=== PATIENT | female | born 1965 | race Caucasian/White ===

== ENCOUNTER 2020-08-05 11:40 | Outpatient (REF) | payer OTHER, SELFPAY | END 2020-08-05 11:41 | disposition home or self-care (01) | LOC: HO.LAB 11:40 | PROVIDERS: PCP Internal Medicine; Visit Provider Internal Medicine | DX: Z20.828 Contact with and (suspected) exposure to other viral communicable diseases (principal) | CPT/HCPCS: C9803; U0003 ==

== ENCOUNTER 2021-03-10 08:02 | Outpatient (REF) | payer OTHER, SELFPAY ==
--- NOTE | ~2021-03-10 | MM_ITS ---
EXAMINATION: MM SCREENING DIGITAL BREAST TOMOSYNTHESIS, BILATERAL CLINICAL INFORMATION: Screening. Asymptomatic. The lifetime risk of breast cancer based on the Tyrer-Cuzick Model is 10%. COMPARISON: Mammography: March 04, 2020 and studies dating back to October 18, 2014 TECHNIQUE: Digital breast tomosynthesis is performed in both the craniocaudal and mediolateral oblique views along with computer-aided detection (CAD). Synthesized 2D images are generated from the tomosynthesis. FINDINGS: The breasts are heterogeneously dense, which may obscure small masses (ACR BI-RADS breast composition Category c). There are no significant masses, abnormal calcifications, or other abnormalities. MM/MM tomosynthesis screening BI IMPRESSION: There are no significant changes from prior study. ASSESSMENT: BI-RADS 1: Negative RECOMMENDATION: Routine annual mammography screening. This patient's information was entered into a reminder system with a target due date for their next mammogram.
== END 2021-03-10 08:03 | disposition home or self-care (01) ==
LOC: HO.MAMMO 08:02
PROVIDERS: Visit Provider Obstetrics & Gynecology
DX: Z12.31 Encounter for screening mammogram for malignant neoplasm of breast (principal)
CPT/HCPCS: 77063; 77067

== ENCOUNTER 2021-05-08 11:29 | Outpatient (REF) | payer OTHER, SELFPAY ==
--- NOTE | ~2021-05-08 | XR_ITS ---
EXAMINATION: XR SHOULDER, RIGHT CLINICAL INFORMATION: Right shoulder pain COMPARISON: None TECHNIQUE: Three views of the right shoulder. FINDINGS: The bones and soft tissues are normal. No fracture. Glenohumeral and acromioclavicular alignment is anatomic with normal joint space. No abnormal soft tissue calcifications. XR/XR shoulder RT min 2V IMPRESSION: No bony abnormality of the right shoulder.
== END 2021-05-08 11:30 | disposition home or self-care (01) ==
LOC: HO.HMGCX 11:29
PROVIDERS: PCP Internal Medicine; Visit Provider Hospitalist
DX: M25.511 Pain in right shoulder (principal); Z20.822 Contact with and (suspected) exposure to COVID-19
CPT/HCPCS: 73030; U0003; U0005

== ENCOUNTER 2021-05-25 15:34 | Outpatient (REF) | payer OTHER, SELFPAY ==
[2021-05-25 16:05] LABS: COVID-19 Test Negative (Negative); IDNOW Serial# 9DD0AD1C
== END 2021-05-25 15:35 | disposition home or self-care (01) ==
LOC: HO.LAB 15:34
PROVIDERS: PCP Internal Medicine; Visit Provider Internal Medicine
DX: Z20.822 Contact with and (suspected) exposure to COVID-19 (principal)
CPT/HCPCS: 36415; 87635; C9803

== ENCOUNTER 2022-03-31 13:54 | Outpatient (REF) | payer OTHER, SELFPAY ==
--- NOTE | ~2022-03-31 | MM_ITS ---
EXAMINATION: MM SCREENING DIGITAL BREAST TOMOSYNTHESIS, BILATERAL CLINICAL INFORMATION: Screening. Asymptomatic. The lifetime risk of breast cancer based on the Tyrer-Cuzick Model is 7.5%. COMPARISON: Mammography: March 10, 2021 and studies dating back to August 10, 2012 TECHNIQUE: Digital breast tomosynthesis is performed in both the craniocaudal and mediolateral oblique views along with computer-aided detection (CAD). Synthesized 2D images are generated from the tomosynthesis. FINDINGS: The breasts are heterogeneously dense, which may obscure small masses (ACR BI-RADS breast composition Category c). There are no significant masses, abnormal calcifications, or other abnormalities. MM/MM tomosynthesis screening BI IMPRESSION: There are no significant changes from prior study. ASSESSMENT: BI-RADS 1: Negative RECOMMENDATION: Routine annual mammography screening. This patient's information was entered into a reminder system with a target due date for their next mammogram.
== END 2022-03-31 13:55 | disposition home or self-care (01) ==
LOC: HO.MAMMO 13:54
PROVIDERS: Visit Provider Internal Medicine
DX: Z12.31 Encounter for screening mammogram for malignant neoplasm of breast (principal)
CPT/HCPCS: 77063; 77067

== ENCOUNTER 2023-06-13 09:10 | Outpatient (REF) | payer OTHER, SELFPAY | END 2023-06-13 09:11 | disposition home or self-care (01) | LOC: HO.MAMMO 09:10 | PROVIDERS: PCP Internal Medicine; Visit Provider Internal Medicine | DX: Z12.31 Encounter for screening mammogram for malignant neoplasm of breast (principal) | CPT/HCPCS: 77063; 77067 ==

== ENCOUNTER → 2023-06-13 09:15 | Outpatient (BNV) | payer OTHER, SELFPAY | PROVIDERS: PCP Internal Medicine; Visit Provider Radiology Diagnostic Radiology | DX: Z12.31 Encounter for screening mammogram for malignant neoplasm of breast (principal) | CPT/HCPCS: 77063; 77067 ==

== ENCOUNTER 2024-06-19 08:25 | Outpatient (REF) | payer OTHER, SELFPAY ==
--- NOTE | ~2024-06-19 | MM_ITS ---
EXAMINATION: MM SCREENING DIGITAL BREAST TOMOSYNTHESIS, BILATERAL CLINICAL INFORMATION: Screening. Asymptomatic. COMPARISON: Mammography: Comparison is made with available priors TECHNIQUE: Digital breast mammography with tomosynthesis is performed in both the craniocaudal and mediolateral oblique views along with computer-aided detection (CAD). FINDINGS: There are scattered areas of fibroglandular density (ACR BI-RADS breast composition Category b). There are no significant masses, abnormal calcifications, or other abnormalities. MM/MM tomosynthesis screening BI IMPRESSION: No mammographic evidence of malignancy. ASSESSMENT: BI-RADS BI-RADS 1 - Negative RECOMMENDATION: Routine annual mammography screening. 1 year F/U This examination should not preclude the clinical evaluation of a suspicious palpable abnormality. This patient's information was entered into a reminder system with a target due date for their next mammogram. Electronically signed by: Altagracia Felton DO 06/29/2024 04:45 PM EDT
== END 2024-06-19 08:26 | disposition home or self-care (01) ==
LOC: HO.MAMMO 08:25
PROVIDERS: PCP Internal Medicine; Visit Provider Internal Medicine
DX: Z12.31 Encounter for screening mammogram for malignant neoplasm of breast (principal)
CPT/HCPCS: 77063; 77067

== ENCOUNTER → 2024-06-19 08:30 | Outpatient (BNV) | payer OTHER, SELFPAY | PROVIDERS: PCP Internal Medicine; Visit Provider Internal Medicine | DX: Z12.31 Encounter for screening mammogram for malignant neoplasm of breast (principal) | CPT/HCPCS: 77063; 77067 ==

== ENCOUNTER 2024-07-16 09:47 | Outpatient (AMB) | payer OTHER, SELFPAY ==
--- NOTE | 2024-07-16 10:19 | MHC.PC.OV ---
Vital Signs 07/16/24 10:31 Height 5 ft 5 in Weight 145 lb 6 oz BMI 24.2 BP 140/100 H Blood Pressure Location Lt brachial Position Sitting Pulse 98 Pulse Source Pulse Oximeter Pulse Oximetry (%) 100 Oxygen Delivery Method Room Air Intake Visit Reasons: Pre-Op- Oral Surgery Intake Note: Patient is here for a Pre-op for Oral Surgery (Tooth Extraction) scheduled with Denny Gyu (F:[phone]) on 07/27/24. Floral Arranger Required: No Ammunition Assembly I Laborer: Not Required per policy Accompanied by: Self / Same As Patient Allergies cephalexin [Cephalexin] Allergy (Unknown, Verified 07/16/24 13:08) HIVES ciprofloxacin [From Cipro] Allergy (Unknown, Verified 07/16/24 13:08) HIVES nitrofurantoin [Macrodantin] Allergy (Unknown, Verified 07/16/24 13:08) Hives penicillin V Allergy (Unknown, Verified 07/16/24 13:08) Hives Penicillins Allergy (Unknown, Verified 07/16/24 13:08) HIVES Sulfa (Sulfonamide Antibiotics) Allergy (Unknown, Verified 07/16/24 13:08) hives sulfamethoxazole [From Bactrim] Allergy (Unknown, Verified 07/16/24 13:08) HIVES trimethoprim [From Bactrim] Allergy (Unknown, Verified 07/16/24 13:08) HIVES Erythromycin Allergy (Unknown, Uncoded 07/16/24 13:08) Hives From MACRODANTIN Allergy (Unknown, Uncoded 07/16/24 13:08) HIVES/BLISTERS keflex Allergy (Unknown, Uncoded 07/16/24 13:08) blisters/rash macrodantin Allergy (Unknown, Uncoded 07/16/24 13:08) blisters/rash penicillin Allergy (Unknown, Uncoded 07/16/24 13:08) blisters/rash sulfa Allergy (Unknown, Uncoded 07/16/24 13:08) blisters/rash Medication List - Last Reconciled 07/16/24 by Shine Robles MD lisinopril 10 mg PO DAILY lorazepam 0.5 mg PO BEDTIME PRN Tobacco use date assessed: 07/16/24 Dental Screening Dental Screen Date: 07/16/24 Did you have a dental visit in the last 12 months?: Yes Did you have a dental problem in the last 6 months where you did not have access to dental care?: No Was dental information given to patient?: Patient has dentist HPI Pre-Op- Oral Surgery HPI Details Patient was last seen for primary care in 03/01/2021. She returns for a preop clearance. 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 She received a prolonged duration of antibiotics which was discontinued 6 months ago. Subsequently she was on an antibiotic for a skin condition which was discontinued 2-1/2 months ago. Patient currently he is on no medications. She needs extraction of her teeth to be done under deep IV sedation. At the dentist, her blood pressure was found to be elevated requesting this preop clearance. Patient is currently on no antihypertensives. 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 She also has had bunion resection surgery. These procedures were done under general anesthesia and patient recovered uneventfully. Does not smoke and is a social drinker. COUNT INCLUDES [facility] Medical History Essential hypertension Surgical History History of ankle surgery H/O splenectomy Family History Mother No problems noted. Father No problems noted. Social History Housing: House Alcohol intake: current Alcohol intake frequency: holidays/special occasions only Patient Tobacco Use Status: Former Tobacco user e-Cigarette/Vaping Use: Never Used Second Hand Smoke Exposure: Yes service: No Current occupational status: employed Cognitive needs: No Hearing needs: No Vision needs: Yes (Glasses) Questionnaire PHQ-9 Over the last 2 weeks, how often have you been bothered by any of the following problems? 1. Little interest or pleasure in doing things: not at all 2. Feeling down, depressed, or hopeless: not at all 3. Trouble falling or staying asleep, or sleeping too much: not at all 4. Feeling tired or having little energy: not at all 5. Poor appetite or overeating: not at all 6. Feeling bad about yourself - or that you are a failure or have let yourself or your family down: not at all 7. Trouble concentrating on things, such as reading the newspaper or watching television: not at all 8. Moving or speaking so slowly that other people could have noticed. Or the opposite - being so fidgety or restless that you have been moving around a lot more than usual: not at all 9. Thoughts that you would be better off or of hurting yourself in some way: not at all Total score: 0 Depression Screening Interpretation: Negative Depression Screening Done: Yes Source: Developed by Drs. Jose Pedersen, Jeanette Farmer, Chuck Adams and colleagues, with an educational emery from [employer]. Thrive Questionnaire Date Thrive assessed: 07/16/24 I am a: Patient What is your living situation today?: I have a steady place to live Within the past 12 months, did the food you bought not last and you didn't have the money to get more?: Never true Within the past 12 months, did you worry whether your food would run out before you got money to buy more?: Never true Do you have trouble paying for medicines?: No Do you have trouble getting transportation to medical appointments?: No Do you have trouble paying your heating and electricity bill?: No Do you have trouble taking care of your child, family member or friend?: No Do you have trouble with day-to-day activities such as bathing, preparing meals, shopping, managing finances, etc.?: No Are you currently unemployed and looking for a job?: No Are you interested in more education?: No Currently or been in a relationship where the following occur: No concerns reported THRIVE Score: 0 AUDIT C Alcohol Use Questionnaire (AUDIT-C) 2. How many drinks containing alcohol do you have on a typical day when you are drinking?: 1 or 2 3. How often do you have six or more drinks on one occasion?: Never Total Score: 0 SARAHY-7 AMB Questionnaire SARAHY-7 Date SARAHY - 7 assessed: 07/16/24 Feeling nervous, anxious, or on edge: 1 = Several days Not being able to stop or control worryin = Several days Worrying too much about different things: 1 = Several days Trouble relaxin = Several days Being so restless that it is hard to sit still: 3 = Nearly every day Becoming easily annoyed or irritable: 0 = Not at all Feeling afraid as if something awful might happen: 0 = Not at all Total SARAHY-7 score (0-4 normal; 5-9 mild; 10-14 moderate; 15-21 severe): 7 Source: Developed by Drs. Jose Pedersen, Jeanette Farmer, Chuck Adams and colleagues, with an educational emery from [employer]. Physical exam (Primary Care) Vital Signs: Last Vital Signs Pulse 98 07/16/24 10:31 BP 140/100 H 07/16/24 10:31 Pulse Ox 100 07/16/24 10:31 Oxygen Delivery Method Room Air 07/16/24 10:31 Care Plan Goal for BP management: Blood pressure is elevated. Medications have been started. BMI result Body Mass Index 24.2 Tobacco/Smoking Status: Tobacco use Status Tobacco use date assessed 07/16/24 07/16/24 10:24 Patient Tobacco Use Status Former Tobacco user 07/16/24 10:24 e-Cigarette/Vaping Use Never Used 07/16/24 10:24 PHQ-9: PHQ-9 Score PHQ-9: Total score 0 07/16/24 11:02 Depression Screening Interpretation: Negative Thrive Assessment: Date of Thrive Assessment Date Thrive assessed 07/16/24 07/16/24 10:24 Currently or been in a relationship where the following occur: No concerns reported Const General: cooperative and healthy appearing Nutritional Appearance: well nourished Orientation/consciousness: patient oriented x3 Limitations: no limitations [facility] Head: Yes normal to inspection Eyes General: appearance normal, both eyes and all related structures Neck Neck: Yes normal visual inspection Chest Chest palpation & inspection: normal palpation of entire chest wall Resp Effort & Inspection: normal respiratory effort Neuro General: patient oriented x3 Office Procedures Flu Questionnaire Does the patient have a severe egg allergy?: No Does the patient have severe life threatening allergies?: No Does the patient have a fever or illness today?: No Has the patient ever had Guillain-[place] Syndrome?: No Has the patient ever had any past reaction to a flu shot?: No Immunizations Fluarix Triv [id number] (PF) 45 mcg (15 mcg x 3)/0.5 mL IM syringe Performing Provider: Shine Robles MD Performing Location: [facility] Administered by: JOSSELYN Westfall on 07/16/24 11:21 Dose Route Admin Location Dispensed Lot Number Expiration Date NDC Water Analyst 0.5 mL IM Left Deltoid 0.5 mL [id number] 03/11/25 83220-377-51 [employer] VIS Given Date VIS Provided VIS Publication Date 07/16/24 Single Vaccine 21 Eligibility Eligibility Date Funding Source Not [facility] Eligible 07/16/24 Private Coding Level of Care Code Est Pt Level 4 (50464) Complex EM visit Add On G2211 Diagnoses Primary hypertension I10 Assessment & Plan Assessment & Plan (1) Primary hypertension: Code(s): I10 - Essential (primary) hypertension Category: Medical Plan: Lisinopril has been ordered. Blood work and EKG has been ordered. After the results are available patient will be cleared for dental extraction. Orders: Orders Basic Metabolic Panel Today I10 - Essential (primary) hypertension Lipid Panel Today I10 - Essential (primary) hypertension Liver Panel Today I10 - Essential (primary) hypertension SARS-COV-2 PCR 05/08/21 B34.9 - Viral infection, unspecified Complete Blood Count no Diff Today I10 - Essential (primary) hypertension Thyroid Stimulating Hormone Today I10 - Essential (primary) hypertension ECG 12 lead EKG Today I10 - Essential (primary) hypertension Influenza [id number] Immunization Today Z23 - Encounter for immunization Medications: New lisinopril 10 mg PO DAILY 90 tabs 1RF Refilled lorazepam 0.5 mg PO BEDTIME PRN 30 tabs 0RF anxiety
[2024-07-16 10:31] VITALS: BP 140/100; PULSE 98; O2SAT 100; BMI 24.2
== END 2024-07-16 11:14 | disposition home or self-care (01) ==
LOC: HO.HMCH 09:48
PROVIDERS: PCP Internal Medicine; Visit Provider Internal Medicine
DX: Z23 Encounter for immunization (principal); I10 Essential (primary) hypertension

== ENCOUNTER → 2024-07-16 09:47 | Outpatient (BNVA) | payer OTHER, SELFPAY | PROVIDERS: PCP Internal Medicine; Visit Provider Internal Medicine | DX: I10 Essential (primary) hypertension (principal); Z23 Encounter for immunization | CPT/HCPCS: 90471; 90656; 96127 ==

== ENCOUNTER 2024-07-17 11:48 | Outpatient (REF) | payer OTHER, SELFPAY ==
--- NOTE | 2024-07-17 11:53 | ECG_ITS ---
Test Reason : HTN Blood Pressure : / mmHG Vent. Rate : 084 BPM Atrial Rate : 084 BPM P-R Int : 156 ms QRS Dur : 072 ms QT Int : 446 ms P-R-T Axes : 075 000 059 degrees QTc Int : 527 ms Normal sinus rhythm Right atrial enlargement Nonspecific T wave abnormality Prolonged QT Abnormal ECG When compared with ECG of 04-SEP-2007 07:24, Nonspecific T wave abnormality now evident in Anterolateral leads QT has lengthened Referred By: Shine Robles Electronically Signed By:AMIE MCKINNEY MD
[2024-07-17 12:26] LABS: Hematocrit 39.9 % (37.0-47.0); Hemoglobin 12.9 g/dl (12.0-16.0); Mean Corpuscular HGB Conc 32.3 g/dl (31.0-35.0); Mean Corpuscular Hemoglobin 31.4 pg (27.0-33.0); Mean Corpuscular Volume 97.1 fL (80.0-98.0); Mean Platelet Volume 9.1 fL (9.4-12.3); Platelet Count 566 X10*3/uL (160-400); Red Blood Count 4.11 X10*6/uL (4.20-5.50); Red Cell Distribution Width 13.1 % (11.0-16.0); White Blood Count 10.8 X10*3/uL (4.8-10.8)
[2024-07-17 13:09] LABS: Alanine Aminotransferase 32 U/L (0-31); Albumin Level 4.2 g/dL (3.5-5.0); Alkaline Phosphatase 92 U/L (39-117); Anion Gap 13 (12-20); Aspartate Amino Transferase 33 U/L (5-31); Bilirubin Direct 0.2 mg/dL (0.0-0.5); Bilirubin Total 0.5 mg/dL (0.0-1.0); Blood Urea Nitrogen 12 mg/dL (9-16); Calcium 9.8 mg/dL (8.4-10.2); Carbon Dioxide 27 mmol/L (22-29); Chloride 102 mmol/L (96-108); Cholesterol 252 mg/dL (<200); Estimated Glomerular Filt Rate > 60; Glucose Random 98 mg/dL (60-115); HDL Cholesterol 50 mg/dL (>40); LDL Cholesterol Calculated 153 mg/dL (<100); Sodium 138 mmol/L (135-145); Total Protein 7.7 g/dL (6.5-8.0); Triglycerides 249 mg/dL (<150)
[2024-07-17 13:14] LABS: Thyroid Stimulating Hormone 1.66 uIU/mL (0.32-4.0)
== END 2024-07-17 11:49 | disposition home or self-care (01) ==
LOC: HO.LAB 11:48
PROVIDERS: PCP Internal Medicine; Visit Provider Internal Medicine
DX: I10 Essential (primary) hypertension (principal)
CPT/HCPCS: 36415; 80048; 80061; 80076; 84443; 85027; 93005

== ENCOUNTER → 2024-07-17 11:53 | Outpatient (BNV) | payer OTHER, SELFPAY | PROVIDERS: PCP Internal Medicine; Visit Provider Internal Medicine Cardiovascular Disease | DX: I10 Essential (primary) hypertension (principal); I51.7 Cardiomegaly; R94.31 Abnormal electrocardiogram [ECG] [EKG] | CPT/HCPCS: 93010 ==

== ENCOUNTER 2024-09-03 09:37 | Outpatient (AMB) | payer OTHER, SELFPAY ==
--- NOTE | 2024-09-03 09:46 | A.OFFPC_ITS ---
Vital Signs 09/03/24 09:47 Height 5 ft 5 in Weight 150 lb 2 oz BMI 25.0 BP 140/86 H Blood Pressure Location Lt brachial Position Sitting Pulse 86 Pulse Source Pulse Oximeter Pulse Oximetry (%) 98 Oxygen Delivery Method Room Air Intake Visit Reasons: Hypertension, Elevated Cholesterol Intake Note: Patient is here to follow up on HTN, Elevated cholesterol. Belt Picker Required: No Director Of Procurement: Not Required per policy Accompanied by: Self / Same As Patient Allergies cephalexin [Cephalexin] Allergy (Unknown, Verified 09/03/24 10:11) HIVES ciprofloxacin [From Cipro] Allergy (Unknown, Verified 09/03/24 10:11) HIVES nitrofurantoin [Macrodantin] Allergy (Unknown, Verified 09/03/24 10:11) Hives penicillin V Allergy (Unknown, Verified 09/03/24 10:11) Hives Penicillins Allergy (Unknown, Verified 09/03/24 10:11) HIVES Sulfa (Sulfonamide Antibiotics) Allergy (Unknown, Verified 09/03/24 10:11) hives sulfamethoxazole [From Bactrim] Allergy (Unknown, Verified 09/03/24 10:11) HIVES trimethoprim [From Bactrim] Allergy (Unknown, Verified 09/03/24 10:11) HIVES Erythromycin Allergy (Unknown, Uncoded 09/03/24 10:11) Hives From MACRODANTIN Allergy (Unknown, Uncoded 09/03/24 10:11) HIVES/BLISTERS keflex Allergy (Unknown, Uncoded 09/03/24 10:11) blisters/rash macrodantin Allergy (Unknown, Uncoded 09/03/24 10:11) blisters/rash penicillin Allergy (Unknown, Uncoded 09/03/24 10:11) blisters/rash sulfa Allergy (Unknown, Uncoded 09/03/24 10:11) blisters/rash Medication List - Last Reconciled 09/03/24 by Shine Robles MD lisinopril 10 mg PO DAILY lorazepam 0.5 mg PO BEDTIME PRN Tobacco use date assessed: 09/03/24 Dental Screening Dental Screen Date: 07/16/24 [facility] Medical History (Updated 09/03/24 @ 10:12 by Shine Robles MD) Hyperlipidemia, unspecified Essential hypertension Surgical History History of ankle surgery H/O splenectomy Family History Mother No problems noted. Father No problems noted. Social History Housing: House Alcohol intake: current Alcohol intake frequency: holidays/special occasions only Patient Tobacco Use Status: Former Tobacco user e-Cigarette/Vaping Use: Never Used Second Hand Smoke Exposure: Yes service: No Current occupational status: employed Cognitive needs: No Hearing needs: No Vision needs: Yes (Glasses) Questionnaire Thrive Questionnaire Date Thrive assessed: 07/16/24 SARAHY-7 AMB Questionnaire SARAHY-7 Date SARAHY - 7 assessed: 07/16/24 Source: Developed by Drs. Jose Pedersen, Jeanette Farmer, Chuck Adams and colleagues, with an educational emery from [employer]. Physical exam (Primary Care) Vital Signs: Last Vital Signs Pulse 86 09/03/24 09:47 BP 140/86 H 09/03/24 09:47 Pulse Ox 98 09/03/24 09:47 Oxygen Delivery Method Room Air 09/03/24 09:47 BMI result Body Mass Index 25.0 Tobacco/Smoking Status: Tobacco use Status Tobacco use date assessed 09/03/24 09/03/24 09:51 Patient Tobacco Use Status Former Tobacco user 09/03/24 09:51 e-Cigarette/Vaping Use Never Used 09/03/24 09:51 Thrive Assessment: Date of Thrive Assessment Date Thrive assessed 07/16/24 09/03/24 09:51 Coding Level of Care Code Est Pt Level 4 (84843) Complex EM visit Add On G2211 Diagnoses Generalized anxiety disorder F41.1 Essential hypertension I10 Hyperlipidemia, unspecified E78.5 Assessment & Plan Assessment & Plan (1) Generalized anxiety disorder: Code(s): F41.1 - Generalized anxiety disorder Category: Medical Plan: Intermittent use of lorazepam. (2) Essential hypertension: Code(s): I10 - Essential (primary) hypertension Category: Medical Plan: HCTZ added to the regimen. (3) Hyperlipidemia, unspecified: Code(s): E78.5 - Hyperlipidemia, unspecified Category: Medical Plan: Statins added to the regimen Plan History of Present Illness The patient is a 59-year-old female presenting with essential hypertension. She has been taking lisinopril for blood pressure management. There has been a persistent elevation in her blood pressure, which was noted during previous visits. Despite treatment with lisinopril, her blood pressure remains elevated, possibly due to stress factors, including recent travel. The combination therapy of lisinopril and hydrochlorothiazide, a diuretic, was discussed but not yet started prior to this visit. Additionally, the patient has a history of hyperlipidemia, for which she is considering statin therapy. There have been no significant issues with lipid levels noted previously, and the patient received information about statin use during this visit. The patient's anxiety symptoms have been associated with episodic events such as flying. Past use of lorazepam for anxiety management has been beneficial for her, especially during travel. The prescription had lapsed, and she had requested a renewal before her current trip. Social History - Frequent travel, including trips to visit grandchildren in [place], [place]. - Engages with family activities, suggesting potential stress due to travel- related logistics. Review of Systems - Neurological: Reports occasional vision issues without glasses. - Respiratory: Reports symptoms consistent with a mild cold. Physical Exam General: Appearance normal, both eyes and all related structures Nutritional Appearance: Well nourished Orientation/consciousness: Patient oriented x3 Limitations: No limitations Head: Normal to inspection Neck: Normal visual inspection Chest: Normal palpation of entire chest wall Respiratory: Normal respiratory effort Neurology: Patient oriented x3, patient reports having a little cold Results Plan - Prescribe hydrochlorothiazide to be taken alongside lisinopril for hypertension management. - Initiate statin therapy for hyperlipidemia, with monitoring of lipid profiles. - Renew lorazepam prescription for situational use during travel. - Verify the date and results of the last colonoscopy performed at [facility]. - Schedule a follow-up appointment in three months, preferably on a . Patient was informed and verbally consented to the use of an ambient scribe for clinic note documentation during this visit. Discussion Notes I discussed with the patient the importance of managing her blood pressure with a combination therapy approach, involving both lisinopril and hydrochlorothiazide. The benefits and potential side effects of this regimen were reviewed. In terms of hyperlipidemia, we explored the initiation of statin therapy, specifically simvastatin or another suitable statin, highlighting the importance of monitoring cholesterol levels. Regarding anxiety management, we agreed on the renewal of lorazepam specifically for use during stressful situations, particularly related to travel. The patient was aware of the episodic nature of her anxiety and its management. I also addressed the need to find out the date of her last colonoscopy to update her preventative health measures. We agreed on a follow-up appointment in three months, emphasizing continuity of care and reassessment of her medication management. Patient Instructions - Take lisinopril and the newly prescribed hydrochlorothiazide as directed for blood pressure control. - Start statin therapy as directed. Take the statin once daily. - Use lorazepam for anxiety as needed, particularly before flights, and not as a daily medication. - Follow up in the next three months, preferably on a . - Inform me if there are any changes in medication tolerance or if new symptoms emerge. - Confirm the date of the last colonoscopy and inform the clinic to update medical records. - Continue routine flu vaccinations during appropriate seasons. Medications: Refilled lorazepam 0.5 mg PO BEDTIME PRN 30 tabs 0RF anxiety
[2024-09-03 09:47] VITALS: BP 140/86; PULSE 86; O2SAT 98; BMI 25.0
== END 2024-09-03 10:11 | disposition home or self-care (01) ==
LOC: HO.HMCH 09:37
PROVIDERS: PCP Internal Medicine; Visit Provider Internal Medicine
DX: F41.1 Generalized anxiety disorder (principal); I10 Essential (primary) hypertension; E78.5 Hyperlipidemia, unspecified

== ENCOUNTER 2024-10-23 13:27 | Outpatient (AMB) | payer OTHER, SELFPAY ==
--- NOTE | 2024-10-23 13:31 | MHC.PC.OV ---
Vital Signs 10/23/24 13:33 Height 5 ft 5 in Weight 147 lb 6 oz BMI 24.5 BP 130/80 Blood Pressure Location Lt brachial Position Sitting Pulse 92 Pulse Source Pulse Oximeter Temp 97.8 F Temp Source Skin Pulse Oximetry (%) 97 Oxygen Delivery Method Room Air Intake Visit Reasons: Breathing issues Intake Note: Patient is here to follow up on Breathing issues and coughing on going for 5 weeks. Photograph Inspector Required: No Transverse Abdominal Muscle Nurse: Not Required per policy Accompanied by: Self / Same As Patient Allergies cephalexin [Cephalexin] Allergy (Unknown, Verified 10/23/24 13:41) HIVES ciprofloxacin [From Cipro] Allergy (Unknown, Verified 10/23/24 13:41) HIVES nitrofurantoin [Macrodantin] Allergy (Unknown, Verified 10/23/24 13:41) Hives penicillin V Allergy (Unknown, Verified 10/23/24 13:41) Hives Penicillins Allergy (Unknown, Verified 10/23/24 13:41) HIVES Sulfa (Sulfonamide Antibiotics) Allergy (Unknown, Verified 10/23/24 13:41) hives sulfamethoxazole [From Bactrim] Allergy (Unknown, Verified 10/23/24 13:41) HIVES trimethoprim [From Bactrim] Allergy (Unknown, Verified 10/23/24 13:41) HIVES Erythromycin Allergy (Unknown, Uncoded 10/23/24 13:41) Hives From MACRODANTIN Allergy (Unknown, Uncoded 10/23/24 13:41) HIVES/BLISTERS keflex Allergy (Unknown, Uncoded 10/23/24 13:41) blisters/rash macrodantin Allergy (Unknown, Uncoded 10/23/24 13:41) blisters/rash penicillin Allergy (Unknown, Uncoded 10/23/24 13:41) blisters/rash sulfa Allergy (Unknown, Uncoded 10/23/24 13:41) blisters/rash Medication List - Last Reconciled 10/23/24 by VITO Bentley atorvastatin 10 mg PO BEDTIME hydrochlorothiazide 25 mg PO DAILY lisinopril 10 mg PO DAILY lorazepam 0.5 mg PO BEDTIME PRN Tobacco use date assessed: 10/23/24 Dental Screening Dental Screen Date: 10/23/24 Did you have a dental visit in the last 12 months?: Yes Did you have a dental problem in the last 6 months where you did not have access to dental care?: No Was dental information given to patient?: Patient has dentist HPI Breathing issues HPI Details Patient is a 59-year-old female with past medical history of hypertension, chronic sinusitis, generalized anxiety Patient is presenting today with a 5 week history of upper respiratory congestion Patient reports that 5 weeks ago she started having a cough and ended up with a sinus infection Reports that she was placed on doxycycline azithromycin and she felt like she was getting better Patient reports that she was placed on cough medicine with codeine that made her nauseous Reports that she feels congested to the point that she feels like she can not breathe She reports auditory wheezing intermittently and it also sounds like she is losing her voice She reports shortness of breath with and without exertion Reports that she can not walk up stairs, she had to take the elevator She denies smoking and is not around anyone that smokes often Patient denies sore throat, denies headache, denies muscle aches and GI symptoms PFSH Medical History Hyperlipidemia, unspecified Essential hypertension Surgical History History of colonoscopy with polypectomy History of colonoscopy (~03/11/15) History of ankle surgery H/O splenectomy Family History Mother No problems noted. Father No problems noted. Social History Housing: House Alcohol intake: current Alcohol intake frequency: holidays/special occasions only Patient Tobacco Use Status: Former Tobacco user e-Cigarette/Vaping Use: Never Used Second Hand Smoke Exposure: Yes service: No Current occupational status: employed Cognitive needs: No Hearing needs: No Vision needs: Yes (Glasses) Questionnaire PHQ-9 Over the last 2 weeks, how often have you been bothered by any of the following problems? 1. Little interest or pleasure in doing things: not at all 2. Feeling down, depressed, or hopeless: not at all 3. Trouble falling or staying asleep, or sleeping too much: not at all 4. Feeling tired or having little energy: not at all 5. Poor appetite or overeating: not at all 6. Feeling bad about yourself - or that you are a failure or have let yourself or your family down: not at all 7. Trouble concentrating on things, such as reading the newspaper or watching television: not at all 8. Moving or speaking so slowly that other people could have noticed. Or the opposite - being so fidgety or restless that you have been moving around a lot more than usual: not at all 9. Thoughts that you would be better off or of hurting yourself in some way: not at all Total score: 0 Depression Screening Interpretation: Negative Depression Screening Done: Yes Source: Developed by Drs. Jose Pedersen, Jeanette Farmer, Chuck Adams and colleagues, with an educational emery from [employer]. Thrive Questionnaire Date Thrive assessed: 10/23/24 I am a: Patient What is your living situation today?: I have a steady place to live Within the past 12 months, did the food you bought not last and you didn't have the money to get more?: Never true Do you have trouble paying for medicines?: No Do you have trouble getting transportation to medical appointments?: No Do you have trouble paying your heating and electricity bill?: No Do you have trouble taking care of your child, family member or friend?: No Do you have trouble with day-to-day activities such as bathing, preparing meals, shopping, managing finances, etc.?: No Are you currently unemployed and looking for a job?: No Are you interested in more education?: No Please select the resources that you would like help with: None Currently or been in a relationship where the following occur: No concerns reported THRIVE Score: 0 AUDIT C Alcohol Use Questionnaire (AUDIT-C) 1. How often do you have a drink containing alcohol?: Monthly or less 2. How many drinks containing alcohol do you have on a typical day when you are drinking?: 1 or 2 Total Score: 1 SARAHY-7 AMB Questionnaire SARAHY-7 Date SARAHY - 7 assessed: 10/23/24 Feeling nervous, anxious, or on edge: 0 = Not at all Not being able to stop or control worryin = Not at all Worrying too much about different things: 0 = Not at all Trouble relaxin = Not at all Being so restless that it is hard to sit still: 0 = Not at all Becoming easily annoyed or irritable: 0 = Not at all Feeling afraid as if something awful might happen: 0 = Not at all Total SARAHY-7 score (0-4 normal; 5-9 mild; 10-14 moderate; 15-21 severe): 0 Source: Developed by Drs. Jose Pedersen, Jeanette Farmer, Chuck Adams and colleagues, with an educational emery from [employer]. SARAHY-7 Assessment Billing SARAHY-7 Assessment Tool: SARAHY-7 Assessment 43640 Review of Systems Const Details: Denies chills, Denies fatigue, Denies fever(s), Denies headache(s) and Denies weakness HEENT Denies change in vision, Denies dizziness, Denies headache(s), Denies hearing loss, + nasal congestion (chronic sinusitis), Denies sinus pain, Denies sinus pressure and Denies sore throat Card Denies chest pain, Denies lightheadedness, Denies dyspnea and Denies other (palpitations) Resp +cough ocassional, +dyspnea with and without exertion and + wheezing GI Denies abdominal pain, Denies melena, Denies hematochezia, Denies change in bowel habits, Denies dyspepsia and Denies nausea Denies hematuria and Denies dysuria Musc Denies abnormal gait, Denies myalgias, Denies arthralgias, Denies numbness and Denies tingling Skin/Breast Denies rash, Denies unusual bruising and Denies wounds Neuro Denies abnormal gait, Denies dizziness, Denies headache(s), Denies memory loss, Denies numbness, Denies Sensory deficit (Neuro), Denies tingling and Denies weakness Psych Denies anxiety, Denies depression and Denies memory loss Endo Denies cold intolerance, Denies fatigue, Denies heat intolerance, Denies polydipsia and Denies polyuria Jose/Lymph Denies easy bleeding and Denies easy bruising Aller/Immun Denies wheezing Physical exam (Primary Care) Vital Signs: Last Vital Signs Temp 97.8 F 10/23/24 13:33 Pulse 92 10/23/24 13:33 BP 130/80 10/23/24 13:33 Pulse Ox 97 10/23/24 13:33 Oxygen Delivery Method Room Air 10/23/24 13:33 BMI result Body Mass Index 24.5 Tobacco/Smoking Status: Tobacco use Status Tobacco use date assessed 10/23/24 10/23/24 13:40 Patient Tobacco Use Status Former Tobacco user 10/23/24 13:40 e-Cigarette/Vaping Use Never Used 10/23/24 13:40 PHQ-9: PHQ-9 Score PHQ-9: Total score 0 10/23/24 13:51 Depression Screening Interpretation: Negative Thrive Assessment: Date of Thrive Assessment Date Thrive assessed 10/23/24 10/23/24 13:40 Currently or been in a relationship where the following occur: No concerns reported Const Other: General: no acute distress, well developed, alert and awake Nutritional Appearance: well nourished Orientation/consciousness: patient oriented x3 HENMT Head: Yes normocephalic and Yes atraumatic Ears: hearing grossly normal bilaterally and TM's normal bilaterally General nose exam: Normal external nose present and bilateral nares erythema with boggy nares Mouth: Normal oral and palatal mucosa present and moist mucous membranes Eyes Pupils: Equal, round and reactive pupils present and Pupil accommodation reflex normal EOM: EOMs intact bilaterally Neck Neck: Yes normal visual inspection, Yes no lymphadenopathy and Yes trachea midline Thyroid: Thyroid normal Chest Chest palpation & inspection: normal inspection of the chest Resp Effort & Inspection: normal respiratory effort Auscultation: inspiratory wheezes in upper lobes bilaterally. Lower lobes diminished Cardio Rate: regular rate Rhythm: regular rhythm Heart sounds: S1 normal heart sound present, S2 normal heart sound present, no gallops, no murmurs and no rubs Bruits: no abdominal aortic bruits and no carotid bruits GI Palpation (GI): No Abdominal aortic bruit present, Soft to palpation, nontender, No hepatosplenomegaly present and No Rebound tenderness present Auscultation: normal bowel sounds General: Yes no CVA tenderness Skin General: warm and dry. Normal skin color. Normal skin turgor Lesions: no lesions Nails: normal Neuro General: patient oriented x3, gait normal Cranial nerves: Yes Equal, round and reactive pupils present Cognition (Neuro): normal cognition Gait exam (Neuro): Normal gait present Extrem General: Yes normal to inspection, No edema and No calf tenderness Psych Appearance: grossly normal Affect: normal affect Attitude: cooperative Thought process: Normal thought process present Coding Level of Care Code Est Pt Level 4 (69008) Diagnoses Chronic sinusitis, unspecified location J32.9 Sinusitis location: unspecified location Pneumonia of both lower lobes due to infectious organism J18.9 Pneumonia type: due to unspecified organism Laterality: bilateral Lung location: lower lobe of lung SOB (shortness of breath) R06.02 Wheezing R06.2 Essential hypertension I10 Additional Codes SARAHY-7 Assessment Billing - SARAHY-7 Assessment Tool: SARAHY-7 Assessment 55882 ([id number]) Time Spent (min) 36 Assessment & Plan Assessment & Plan (1) Chronic sinusitis: Code(s): J32.9 - Chronic sinusitis, unspecified Category: Medical Qualifiers: Sinusitis location: unspecified location Qualified Code(s): J32.9 - Chronic sinusitis, unspecified Plan: Patient is presenting today with a 5 week history of upper respiratory congestion Patient reports that 5 weeks ago she started having a cough and ended up with a sinus infection Reports that she was placed on doxycycline azithromycin and she felt like she was getting better Patient reports that she was placed on cough medicine with codeine that made her nauseous Patient's symptoms returned. Discussed with patient to use fluticasone propionate as ordered Continue loratadine 10 mg p.r.n. daily Start prednisone 20 mg daily x3 days (2) Pneumonia: Code(s): J18.9 - Pneumonia, unspecified organism Category: Medical Qualifiers: Pneumonia type: due to unspecified organism Laterality: bilateral Lung location: lower lobe of lung Qualified Code(s): J18.9 - Pneumonia, unspecified organism Plan: Wheezes in upper lobes bilaterally and bilateral lower lobes diminished We will send patient for a chest x-ray to rule out pneumonia (3) SOB (shortness of breath): Code(s): R06.02 - Shortness of breath Category: Medical Plan: Albuterol sulfate 90 mcg/actuation 2 puffs 4-6 hours p.r.n. ordered (4) Wheezing: Code(s): R06.2 - Wheezing Category: Medical Plan: DuoNeb nebulizer treatment given in office with positive effect Continue rescue inhaler as ordered (5) Essential hypertension: Code(s): I10 - Essential (primary) hypertension Category: Medical Plan: Blood pressure 130/80 in office Reinforced low-sodium diet Continue lisinopril 10 mg daily Orders: Orders AMB Nebulizer Treatment 10/23/24 R06.02 - Shortness of breath, R06.2 - Wheezing XR chest 2V 10/23/24 J18.9 - Pneumonia, unspecified organism, J32.9 - Chronic sinusitis, unspecified, R06.02 - Shortness of breath, R06.2 - Wheezing Medications: New prednisone 20 mg PO DAILY 3 tabs 0RF 3 days ipratropium-albuterol 0.5 mg-3 mg(2.5 mg base)/3 mL 3 mL inhalation ONCE 3 mL 0RF R06.02 - Shortness of breath, R06.2 - Wheezing albuterol sulfate 90 mcg/actuation 2 puffs inhalation Q4-6H PRN 8.5 grams 1RF shortness of breath or wheezing loratadine (Allergy Relief (loratadine)) 10 mg PO DAILY PRN 30 tabs 2RF allergy symptoms fluticasone propionate 50 mcg/actuation administer into each nostril 1 spray intranasal BID 16 grams 0RF
[2024-10-23 13:33] VITALS: BP 130/80; PULSE 92; TEMP 36.6; O2SAT 97; BMI 24.5
== END 2024-10-23 14:13 | disposition home or self-care (01) ==
PROVIDERS: PCP Internal Medicine
DX: J32.9 Chronic sinusitis, unspecified (principal); J18.9 Pneumonia, unspecified organism; R06.02 Shortness of breath; R06.2 Wheezing; I10 Essential (primary) hypertension

== ENCOUNTER 2024-10-23 13:27 | Outpatient (REF) | payer OTHER, SELFPAY ==
--- NOTE | ~2024-10-23 | XR_ITS ---
EXAMINATION: XR CHEST 2 VIEWS HISTORY: J18.9 - Pneumonia, unspecified organism COMPARISON: Comparison is made with the prior examination dated 01/21/2020. FINDINGS: PA and lateral views of the chest are submitted. The lungs are expanded and clear. There is no pleural effusion, pneumothorax, or pulmonary vascular congestion. The heart is normal in size. The bones are intact. XR/XR chest 2V IMPRESSION: No acute cardiopulmonary abnormality. Electronically signed by: Jose Grace MD 10/23/2024 02:38 PM LEONARDO
== END 2024-10-23 13:28 | disposition home or self-care (01) ==
LOC: HO.XRAY 13:27
PROVIDERS: PCP Internal Medicine
DX: J32.9 Chronic sinusitis, unspecified (principal); J18.9 Pneumonia, unspecified organism; R06.02 Shortness of breath; R06.2 Wheezing; I10 Essential (primary) hypertension; F41.1 Generalized anxiety disorder; Z79.899 Other long term (current) drug therapy
CPT/HCPCS: 71046; 96127

== ENCOUNTER → 2024-10-23 14:21 | Outpatient (BNV) | payer OTHER, SELFPAY | PROVIDERS: PCP Internal Medicine; Visit Provider Radiology Diagnostic Radiology | DX: J18.9 Pneumonia, unspecified organism (principal) | CPT/HCPCS: 71046 ==

== ENCOUNTER 2024-12-06 15:12 | Outpatient (REF) | payer OTHER, SELFPAY ==
--- NOTE | ~2024-12-06 | XR_ITS ---
CLINICAL HISTORY: R05.9 - Cough, unspecified 2 view chest x-ray Comparison: None Findings: The lungs are clear. Normal size heart. No acute fracture. IMPRESSION: 1. No acute findings. This document has been electronically signed by: Clarence Barrientos MD on 12/07/2024 09:01:12
[2024-12-06 17:05] LABS: Hematocrit 35.6 % (37.0-47.0); Mean Corpuscular HGB Conc 33.7 g/dl (31.0-35.0); Mean Corpuscular Hemoglobin 31.7 pg (27.0-33.0); Mean Corpuscular Volume 93.9 fL (80.0-98.0); Mean Platelet Volume 8.5 fL (9.4-12.3); Platelet Count 638 X10*3/uL (160-400); Red Blood Count 3.79 X10*6/uL (4.20-5.50); Red Cell Distribution Width 13.5 % (11.0-16.0); White Blood Count 13.3 X10*3/uL (4.8-10.8)
[2024-12-06 17:35] LABS: B Type Natriuretic Peptide 30 pg/mL (<100)
[2024-12-06 17:48] LABS: Alanine Aminotransferase 21 U/L (0-31); Alkaline Phosphatase 89 U/L (39-117); Anion Gap 10 (12-20); Aspartate Amino Transferase 22 U/L (5-31); Bilirubin Direct 0.1 mg/dL (0.0-0.5); Bilirubin Total 0.4 mg/dL (0.0-1.0); Blood Urea Nitrogen 9 mg/dL (9-16); Calcium 9.2 mg/dL (8.4-10.2); Carbon Dioxide 31 mmol/L (22-29); Chloride 95 mmol/L (96-108); Cholesterol 219 mg/dL (<200); Estimated Glomerular Filt Rate > 60; Glucose Random 83 mg/dL (60-115); HDL Cholesterol 46 mg/dL (>40); LDL Cholesterol Calculated 115 mg/dL (<100); Potassium 3.6 mmol/L (3.3-5.1); Sodium 132 mmol/L (135-145); Total Protein 7.6 g/dL (6.5-8.0); Triglycerides 294 mg/dL (<150)
[2024-12-06 18:03] LABS: Thyroid Stimulating Hormone 1.39 uIU/mL (0.32-4.0)
== END 2024-12-06 15:13 | disposition home or self-care (01) ==
LOC: HO.XRAY 15:12
PROVIDERS: PCP Internal Medicine; Visit Provider Internal Medicine
DX: R05.3 Chronic cough (principal); J47.9 Bronchiectasis, uncomplicated; I10 Essential (primary) hypertension; E78.5 Hyperlipidemia, unspecified
CPT/HCPCS: 36415; 71046; 80048; 80061; 80076; 83880; 84443; 85027; 86140

== ENCOUNTER 2024-12-06 15:12 | Outpatient (AMB) | payer OTHER, SELFPAY ==
--- NOTE | 2024-12-06 15:29 | MHC.PC.OV ---
Vital Signs 12/06/24 15:30 Height 5 ft 5 in Weight 152 lb BMI 25.3 BP 120/70 Blood Pressure Location Lt brachial Position Sitting Pulse 88 Pulse Source Pulse Oximeter Temp 97.1 F Temp Source Temporal Artery Scan Pulse Oximetry (%) 97 Oxygen Delivery Method Room Air Intake Visit Reasons: 3mth f/u Intake Note: Patient is here to follow up on HTN, HLD. Seat Scooper Machine Required: No Public Relations Writer: Not Required per policy Accompanied by: Self / Same As Patient Allergies cephalexin [Cephalexin] Allergy (Unknown, Verified 12/06/24 15:29) HIVES ciprofloxacin [From Cipro] Allergy (Unknown, Verified 12/06/24 15:29) HIVES nitrofurantoin [Macrodantin] Allergy (Unknown, Verified 12/06/24 15:29) Hives penicillin V Allergy (Unknown, Verified 12/06/24 15:29) Hives Penicillins Allergy (Unknown, Verified 12/06/24 15:29) HIVES Sulfa (Sulfonamide Antibiotics) Allergy (Unknown, Verified 12/06/24 15:29) hives sulfamethoxazole [From Bactrim] Allergy (Unknown, Verified 12/06/24 15:29) HIVES trimethoprim [From Bactrim] Allergy (Unknown, Verified 12/06/24 15:29) HIVES Erythromycin Allergy (Unknown, Uncoded 12/06/24 15:29) Hives From MACRODANTIN Allergy (Unknown, Uncoded 12/06/24 15:29) HIVES/BLISTERS keflex Allergy (Unknown, Uncoded 12/06/24 15:29) blisters/rash macrodantin Allergy (Unknown, Uncoded 12/06/24 15:29) blisters/rash penicillin Allergy (Unknown, Uncoded 12/06/24 15:29) blisters/rash sulfa Allergy (Unknown, Uncoded 12/06/24 15:29) blisters/rash Tobacco use date assessed: 12/06/24 Dental Screening Dental Screen Date: 10/23/24 [facility] Medical History Hyperlipidemia, unspecified Essential hypertension Surgical History History of colonoscopy with polypectomy History of colonoscopy (~03/11/15) History of ankle surgery H/O splenectomy Family History Mother No problems noted. Father No problems noted. Social History Housing: House Alcohol intake: current Alcohol intake frequency: holidays/special occasions only Patient Tobacco Use Status: Former Tobacco user e-Cigarette/Vaping Use: Never Used Second Hand Smoke Exposure: Yes service: No Current occupational status: employed Cognitive needs: No Hearing needs: No Vision needs: Yes (Glasses) Questionnaire Thrive Questionnaire Date Thrive assessed: 10/23/24 SARAHY-7 AMB Questionnaire SARAHY-7 Date SARAHY - 7 assessed: 10/23/24 Source: Developed by Drs. Jose Pedersen, Jeanette Farmer, Chuck Adams and colleagues, with an educational emery from [employer]. Physical exam (Primary Care) Vital Signs: Last Vital Signs Temp 97.1 F 12/06/24 15:30 Pulse 88 12/06/24 15:30 BP 120/70 12/06/24 15:30 Pulse Ox 97 12/06/24 15:30 Oxygen Delivery Method Room Air 12/06/24 15:30 BMI result Body Mass Index 25.3 Tobacco/Smoking Status: Tobacco use Status Tobacco use date assessed 12/06/24 12/06/24 15:35 Patient Tobacco Use Status Former Tobacco user 12/06/24 15:35 e-Cigarette/Vaping Use Never Used 12/06/24 15:35 Thrive Assessment: Date of Thrive Assessment Date Thrive assessed 10/23/24 12/06/24 15:35 Coding Level of Care Code New Pt Level 4 (65348) Complex EM visit Add On G2211 Diagnoses Cough R05.9 Assessment & Plan Assessment & Plan (1) Cough: Code(s): R05.9 - Cough, unspecified Plan: Bronchiectasis should be ruled out, she is coughing sputum as greyish plugs. Another round of abx, prednisone, SYmbicort, Cxr. A CT scan and pulmonary consult has been planned. Plan History of Present Illness The patient is a 59-year-old female presenting with a chronic and worsening cough lasting approximately three months. Initial management included a course of antibiotics and two courses of prednisone (3-day course followed by a 10-day course) with little effect. Her symptoms include nocturnal exacerbation of cough, with associated sleep disruption and body aches. Sputum expectoration is characterized by a dark green color, absent of blood. However, there is right-sided ear hemorrhaging linked to severe coughing episodes. A recent chest x-ray was reported as clear but did not lead to symptom improvement. The patient has commenced inhaler use and vaporizers during sleep, with no relief. Additional symptoms include a new difficulty in breathing when speaking and concerns regarding possible bronchitis. A cardiovascular component to her pulmonary symptoms is under consideration, with pending blood work and further imaging to clarify the diagnosis. Social History Review of Systems - Respiratory: Reports difficulty breathing when speaking, persistent coughing with dark green sputum, nocturnal exacerbation of symptoms. - ENT: Reports right ear bleeding associated with severe coughing. - General: Reports sleep disruption and generalized body aches. Physical Exam General: Appearance normal, both eyes and all related structures Nutritional Appearance: Well nourished Orientation/consciousness: Patient oriented x3 Limitations: No limitations Head: Normal to inspection Neck: Normal visual inspection Chest: Normal palpation of entire chest wall Respiratory: Abnormal respiratory effort, patient experiencing significant coughing and difficulty breathing Neurology: Patient oriented x3 Results - Labs: Blood work including inflammatory markers and BMP to check for inflammation and possible heart failure. - Tests and Diagnostics: Clear chest x-ray conducted on October 23, 2022. Plan I have determined that the patient's current symptoms of chronic cough and possible bronchitis require a more comprehensive treatment strategy. This includes another course of prednisone, initiation of a Symbicort inhaler twice daily, and codeine-containing cough medication for symptom relief. The potential need for further diagnostic imaging with CT and consultation with a bass string winder has also been addressed. Blood work including inflammatory markers and a repeat chest x-ray will be pursued to exclude cardiac contribution to pulmonary symptoms. The prescribed regimens aim to control the symptoms and investigate the etiology of the ongoing cough effectively. The patient was informed of the risks and benefits of these interventions. Patient was informed and verbally consented to the use of an ambient scribe for clinic note documentation during this visit. Discussion Notes I discussed with the patient the ongoing concerns regarding her persistent cough and possible bronchitis, considering the lack of resolution from previous treatments. I emphasized that the clear chest x-ray performed earlier necessitates further investigation to determine the cause of her symptoms. The potential correlation of cardiac issues contributing to pulmonary symptoms was explained, and it was agreed upon to conduct more blood tests and a follow-up chest x-ray. I highlighted the implementation of Symbicort for improved inhalation management and the inclusion of codeine medication to assist her sleep disruption caused by coughing. A referral to a bass string winder was agreed upon to ensure comprehensive care. The patient was reassured about following through on the prescribed treatment and immediate diagnostics. Patient Instructions - Start taking Symbicort inhaler twice daily. - Use the prescribed cough medication containing codeine as directed to alleviate cough symptoms. - Complete another course of prednisone as prescribed. - Obtain repeat chest x-ray as soon as possible. - Follow up with the recommended blood work. - Attend the scheduled CT scan. - Expect a referral to consult with a bass string winder for further evaluation. - Seek immediate care if symptoms worsen or if new concerning symptoms arise. Orders: Orders Complete Blood Count no Diff 12/06/24 R05.9 - Cough, unspecified Basic Metabolic Panel 12/06/24 R05.9 - Cough, unspecified C Reactive Protein 12/06/24 R05.9 - Cough, unspecified CT chest w IV con Today J47.9 - Bronchiectasis, uncomplicated XR chest 2V 12/06/24 R05.9 - Cough, unspecified Liver Panel 12/06/24 R05.9 - Cough, unspecified Thyroid Stimulating Hormone 12/06/24 R05.9 - Cough, unspecified Lipid Panel 12/06/24 R05.9 - Cough, unspecified B Type Natriuretic Peptide 12/06/24 R05.9 - Cough, unspecified Referrals Pulmonology Referral J47.9 - Bronchiectasis, uncomplicated Medications: New prednisone 6 pills by mouth day 1, 6 pills by mouth day 2, 5 pills by mouth day 3, 4 pills by mouth day 4, 3 pills by mouth day 5, 2 pills by mouth day 6, 1 pill by mouth day 7 and 1 pill by mouth day 8. 10 mg PO DAILY 28 tabs 0RF azithromycin take 500 mg today (day 1), then 250 mg for 4 days (days 2-5) PO 6 tabs 0RF codeine-guaifenesin 10-100 mg/5 mL 5 mL PO Q6H PRN 120 mL 0RF allergy symptoms budesonide-formoterol 160-4.5 mcg/actuation (Symbicort) 2 puffs PO BID 10.2 grams 1RF Refilled hydrochlorothiazide 25 mg PO DAILY 90 tabs 1RF lisinopril 10 mg PO DAILY 90 tabs 1RF
[2024-12-06 15:30] VITALS: BP 120/70; PULSE 88; TEMP 36.2; O2SAT 97; BMI 25.3
== END 2024-12-06 16:00 | disposition home or self-care (01) ==
LOC: HO.HMCH 15:12
PROVIDERS: PCP Internal Medicine; Visit Provider Internal Medicine
DX: R05.9 Cough, unspecified (principal)

== ENCOUNTER → 2024-12-06 16:12 | Outpatient (BNV) | payer OTHER, SELFPAY | PROVIDERS: PCP Internal Medicine; Visit Provider Specialist | DX: R05.9 Cough, unspecified (principal) | CPT/HCPCS: 71046 ==

== ENCOUNTER 2024-12-13 11:05 | Outpatient (REF) | payer OTHER, SELFPAY ==
[2024-12-13 11:22] LABS: MANUAL DIFF FLAG NO
[2024-12-13 11:54] LABS: Basophils Absolute Auto 0.1 X10*3/uL (0.0-0.2); Basophils Percent Auto 0.3 % (0-2); Eosinophils Percent Auto 0.2 % (0-4); Hematocrit 40.8 % (37.0-47.0); Hemoglobin 13.4 g/dl (12.0-16.0); Imm Gran Abs Auto 0.16 X10*3/uL (0.00-0.03); Imm Gran Pct Auto 0.7 % (0.0-0.4); Lymphocytes Absolute Auto 1.8 X10*3/uL (1.2-4.9); Lymphocytes Percent Auto 8.2 % (20-40); Mean Corpuscular HGB Conc 32.8 g/dl (31.0-35.0); Mean Corpuscular Hemoglobin 31.1 pg (27.0-33.0); Mean Corpuscular Volume 94.7 fL (80.0-98.0); Mean Platelet Volume 8.3 fL (9.4-12.3); Monocytes Absolute Auto 0.3 X10*3/uL (0.1-1.2); Monocytes Percent Auto 1.3 % (2-11); Neutrophils Absolute Auto 19.3 x10*3/uL (2.0-8.3); Neutrophils Percent Auto 89.3 % (45-73); Platelet Count 601 X10*3/uL (160-400); Red Blood Count 4.31 X10*6/uL (4.20-5.50); Red Cell Distribution Width 13.5 % (11.0-16.0); White Blood Count 21.7 X10*3/uL (4.8-10.8)
[2024-12-13 12:33] LABS: Alanine Aminotransferase 17 U/L (0-31); Albumin Level 4.4 g/dL (3.5-5.0); Alkaline Phosphatase 78 U/L (39-117); Anion Gap 15 (12-20); Aspartate Amino Transferase 19 U/L (5-31); Bilirubin Total 0.5 mg/dL (0.0-1.0); Blood Urea Nitrogen 14 mg/dL (9-16); Calcium 9.9 mg/dL (8.4-10.2); Carbon Dioxide 27 mmol/L (22-29); Chloride 96 mmol/L (96-108); Estimated Glomerular Filt Rate > 60; Glucose Random 133 mg/dL (60-115); Sodium 134 mmol/L (135-145); Total Protein 8.1 g/dL (6.5-8.0)
== END 2024-12-13 11:06 | disposition home or self-care (01) ==
LOC: HO.LAB 11:05
PROVIDERS: PCP Internal Medicine; Visit Provider Physician Assistant Medical
DX: Z00.00 Encounter for general adult medical examination without abnormal findings (principal)
CPT/HCPCS: 36415; 80053; 85025

== ENCOUNTER 2024-12-21 13:28 | Outpatient (AMB) | payer OTHER, SELFPAY ==
[2024-12-21 13:33] VITALS: BP 134/68; PULSE 100; O2SAT 99
--- NOTE | 2024-12-21 13:33 | A.OFFVIS_ITS ---
Vital Signs 3 12/21/24 13:33 Height 5 ft 5 in BP 134/68 Blood Pressure Location Lt brachial Position Sitting Pulse 100 Pulse Source Pulse Oximeter Pulse Oximetry (%) 99 Oxygen Delivery Method Room Air Intake Visit Reasons: Bronchiectasis Restaurant Associate Required: No Ceramic Restorer: Ceramic Restorer offered & declined Accompanied by: Self / Same As Patient Allergies cephalexin [Cephalexin] Allergy (Unknown, Verified 12/21/24 13:39) HIVES ciprofloxacin [From Cipro] Allergy (Unknown, Verified 12/21/24 13:39) HIVES nitrofurantoin [Macrodantin] Allergy (Unknown, Verified 12/21/24 13:39) Hives penicillin V Allergy (Unknown, Verified 12/21/24 13:39) Hives Penicillins Allergy (Unknown, Verified 12/21/24 13:39) HIVES Sulfa (Sulfonamide Antibiotics) Allergy (Unknown, Verified 12/21/24 13:39) hives sulfamethoxazole [From Bactrim] Allergy (Unknown, Verified 12/21/24 13:39) HIVES trimethoprim [From Bactrim] Allergy (Unknown, Verified 12/21/24 13:39) HIVES Erythromycin Allergy (Unknown, Uncoded 12/21/24 13:39) Hives From MACRODANTIN Allergy (Unknown, Uncoded 12/21/24 13:39) HIVES/BLISTERS keflex Allergy (Unknown, Uncoded 12/21/24 13:39) blisters/rash macrodantin Allergy (Unknown, Uncoded 12/21/24 13:39) blisters/rash penicillin Allergy (Unknown, Uncoded 12/21/24 13:39) blisters/rash sulfa Allergy (Unknown, Uncoded 12/21/24 13:39) blisters/rash Medication List - Last Reconciled 12/21/24 by Marija Bowman LPN albuterol sulfate 90 mcg/actuation 2 puffs inhalation Q4-6H PRN atorvastatin 10 mg PO BEDTIME budesonide-formoterol 160-4.5 mcg/actuation (Symbicort) 2 puffs PO BID codeine-guaifenesin 10-100 mg/5 mL 5 mL PO Q6H PRN fluticasone propionate 50 mcg/actuation 1 spray intranasal BID hydrochlorothiazide 25 mg PO DAILY lisinopril 10 mg PO DAILY loratadine (Allergy Relief (loratadine)) 10 mg PO DAILY PRN lorazepam 0.5 mg PO BEDTIME PRN HPI HPI Bronchiectasis: Details: Lucretia is a pleasant 59 year old female, former smoker less than 10 pack year history, quit 20 years ago with 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 She was referred by PCP for pulmonary evaluation. She reports 3.5 months ago started with a cough initially treated with a zpak and prednisone with no change in symptoms. She was then treated with doxycycline and another course of prednisone for persistent productive cough with tenacious green sputum. She notes cough has improved now with clear mucous and laryngitis, whispering throughout visit to avoid coughing. She also reports dyspnea on exertion which started about three weeks ago. She notes prednisone and doxycycline completed yesterday. She denies fevers, chills or chest congestion. CXR unremarkable. CT chest ordered by PCP scheduled for next week. She denies prior h/o asthma/COPD, however is currently on Symbicort for bronchitis and using albuterol MDI with good effect. She denies recurrent respiratory infections. She has concerns of mold exposure in work environment. 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 She was treated by [facility] with IV Tobramycin, Linezolid and Azithromycin, Unfortunately Tobramycin had to be d/c and was switched to Omadacycline. She was reportedly on treatment for a total of two years, until her WBC was WNL. Will obtain records. She also was supposed to have evaluation during this time due to +ANCA however she was undergoing treatment for MC so further evaluation was deferred until treatment completed and patient lost to follow up. [facility] Medical History (Updated 12/22/24 @ 21:28 by Mary Alice Wharton NP) Elevated platelet count Anemia Elevated WBCs Hyperlipidemia, unspecified Essential hypertension Surgical History History of colonoscopy with polypectomy History of colonoscopy (~03/11/15) History of ankle surgery H/O splenectomy Family History Mother No problems noted. Father No problems noted. Social History (Updated 12/21/24 @ 13:42 by Marija Bowman LPN) Housing: House Alcohol intake: current Alcohol intake frequency: holidays/special occasions only Patient Tobacco Use Status: Former Tobacco user Cigarettes Per Day: 10 Years Smoked: 15? /quit 2004 e-Cigarette/Vaping Use: Never Used Second Hand Smoke Exposure: Yes service: No Current occupational status: employed Cognitive needs: No Hearing needs: No Vision needs: Yes (Glasses) Review of Systems Const Denies chills, Denies excessive sweating, Denies fever(s), Denies headache(s) and Denies night sweats Eyes Denies dry eyes, Denies irritation and Denies itchy eyes ENT Reports Normal hearing present, Denies headache(s), Denies nasal congestion, Denies nasal discharge and Denies post nasal drip Card Denies chest pain, Denies chest pain at rest, Denies chest pain with activity, Denies claudication, Denies leg edema, Denies orthopnea and Denies paroxysmal nocturnal dyspnea Resp Denies chest congestion, Denies pain on inspiration, Denies pain with cough, Denies stridor and Denies wheezing Musc Denies myalgias Neuro Reports Normal hearing present and Denies headache(s) Endo Denies excessive sweating Jose/Lymph Denies lymphadenopathy Aller/Immun Denies itchy eyes, Denies seasonal rhinorrhea and Denies wheezing Physical Exam Vital Signs: Last Vital Signs Pulse 100 12/21/24 13:33 BP 134/68 12/21/24 13:33 Pulse Ox 99 12/21/24 13:33 Oxygen Delivery Method Room Air 12/21/24 13:33 Const General: cooperative, healthy appearing, comfortable, no acute distress, well developed and alert Orientation/consciousness: patient oriented x3 Limitations: no limitations HEENT Head: Yes normal to inspection, Yes normocephalic and Yes atraumatic Ears: hearing grossly normal bilaterally and external ears normal Eyes General: appearance normal, both eyes and all related structures Eyelids: Yes eyelids normal Sclerae: sclerae normal EOM: EOMs intact bilaterally Neck Neck: Yes normal visual inspection and Yes no lymphadenopathy Lymphatic: no lymphadenopathy noted Chest Chest palpation & inspection: normal inspection of the chest Resp Other: whispering throughout visit to avoid cough, wet harsh cough throughout visit Effort & Inspection: normal respiratory effort, no audible wheezes, no stridor, not tachypneic, no tripod positioning and no use of accessory muscles Auscultation: clear to auscultation bilaterally Cardio Jugular venous distension: no JVD Rate: regular rate Rhythm: regular rhythm Skin Other: warm, dry General skin exam: no rashes or lesions noted Neuro General: patient oriented x3 Cranial nerves: Yes Normal hearing present Cognition (Neuro): normal cognition Gait exam (Neuro): Normal gait present Extrem General: Yes normal to inspection, Yes capillary refill normal, Yes no clubbing, cyanosis or edema and Yes no pedal edema Psych Appearance: grossly normal and well kempt Speech and movement: Normal speech and movement present and Clear speech present Affect: normal affect Attitude: cooperative Thought process: Normal thought process present Thought content: Normal thought content present Insight: Good insight present (Psych) Judgement: Good judgement present (Psych) Results Reviewed Results Reviewed: Assessment & Plan Assessment & Plan (1) SOB (shortness of breath): Code(s): R06.02 - Shortness of breath Category: Medical (2) Chronic cough: Code(s): R05.3 - Chronic cough Category: Medical (3) History of mycobacterial infection: Code(s): Z86.19 - Personal history of other infectious and parasitic diseases Category: Medical (4) Multiple drug allergies: Code(s): Z88.9 - Allergy status to unspecified drugs, medicaments and biological substances Category: Medical Plan Lucretia presents with chronic cough slowly improving after doxycycline however continues with harsh productive cough and clear sputum. Will send for sputum culture due to prior h/o mycobacterium infection. Will also send for RAST to assess for an allergic component, specifically mold exposure. Will hold off on CBC as she recently completed prednisone and could diminish eosinophil count. She has upcoming chest CT which will provide clearer picture of underlying infectious/inflammatory process as prior CXR unremarkable. Patient reported improvements with codeine cough syrup, will refill. Patient aware sedative effects. In the future will send for PFT, unlikely she would be able to complete at this time due to persistent cough. Will also send allergy referral as patient with multiple antibiotic allergies which limits prescribing. All questions were answered and patient is in agreement of plan. Will follow up to review CT results. Orders: Orders 2 Immunoglobulin E 04/11/25 Z91.09 - Other allergy status, other than to drugs and biological substances Resp Allergy Profile Region I 12/21/24 Z91.09 - Other allergy status, other than to drugs and biological substances Sputum Cult + Gram stain 12/21/24 J40 - Bronchitis, not specified as acute or chronic Referrals 2 Allergy & Immunology Referral Z88.9 - Allergy status to unspecified drugs, medicaments and biological substances Medications: Refilled 2 codeine-guaifenesin 10-100 mg/5 mL 5 mL PO Q6H PRN 200 mL 0RF allergy symptoms Coding Level of Care Code New Pt Level 4 (00718) Complex EM visit Add On G2211 Diagnoses SOB (shortness of breath) R06.02 Chronic cough R05.3 History of mycobacterial infection Z86.19 Multiple drug allergies Z88.9
== END 2024-12-21 14:25 | disposition home or self-care (01) ==
LOC: HO.HPSW 13:28
PROVIDERS: PCP Internal Medicine; Visit Provider Nurse Practitioner Family
DX: R06.02 Shortness of breath (principal); R05.3 Chronic cough; Z86.19 Personal history of other infectious and parasitic diseases; Z88.9 Allergy status to unspecified drugs, medicaments and biological substances
CPT/HCPCS: 99204

== ENCOUNTER 2024-12-25 14:37 | Outpatient (REF) | payer OTHER, SELFPAY ==
--- NOTE | ~2024-12-25 | CT_ITS ---
CLINICAL HISTORY: J47.9 - Bronchiectasis, uncomplicated CT chest without contrast Comparison: 01/31/2018 Findings: The heart size is normal. The visualized thyroid and mediastinum are unremarkable. Small number of lingular and right lower lobe scattered small calcified granulomas. 2 mm stable benign left perifissural nodule on series 6, image 38. No evidence of lung infiltrate or bronchiectasia. Minimal right middle lobe scarring/atelectasis. Severely small/atrophied spleen. Right hepatic dome small cysts. 25 mm left adrenal adenoma. The bones are intact. IMPRESSION: 1. No evidence of lung infiltrate or bronchiectasia. 2. Left adrenal adenoma. This document has been electronically signed by: Deborah Corey MD on 12/27/2024 10:50:40
== END 2024-12-25 14:38 | disposition home or self-care (01) ==
LOC: HO.CT 14:37
PROVIDERS: PCP Internal Medicine; Visit Provider Internal Medicine
DX: J47.9 Bronchiectasis, uncomplicated (principal)
CPT/HCPCS: 71250

== ENCOUNTER → 2024-12-25 14:39 | Outpatient (BNV) | payer OTHER, SELFPAY | PROVIDERS: PCP Internal Medicine; Visit Provider Radiology Diagnostic Radiology | DX: J47.9 Bronchiectasis, uncomplicated (principal); D35.02 Benign neoplasm of left adrenal gland | CPT/HCPCS: 71250 ==

== ENCOUNTER 2025-01-04 11:59 | Outpatient (REF) | payer OTHER, SELFPAY ==
[2025-01-14 15:07] LABS: Class Alternaria alternata 0; Class Aspergillus fumigatus 0; Class Bermuda Grass 0; Class Birch 0; Class Cat Dander 0; Class Cladosporium herbarum 0; Class Cockroach 0; Class Common Ragweed 0; Class Cottonwood 0; Class Derm. pterony 0; Class Dermatophagoides farinae 0; Class Dog Dander 0; Class Elm 0; Class Maple Box Elder 0; Class Mountain Cedar 0; Class Mouse Urine Protein 0; Class Mugwort 0; Class Oak 0; Class Penicillium crysogenum 0; Class Rough Pigweed 0; Class Sheep Sorrel 0; Class Sycamore 0; Class Timothy Grass 0; Class Walnut Tree 0; Class White Ash 0; Class White Mulberry 0; D001 IgE D pteronyssinus <0.10 kU/L; D002 - IgE D farinae <0.10 kU/L; E001 - IgE Cat Dander <0.10 kU/L; E005 - IgE Dog Dander <0.10 kU/L; E072-IgE Mouse Urine <0.10 kU/L; G002 IgE Bermuda Grass <0.10 kU/L; G006 - IgE Timothy Grass <0.10 kU/L; I006-IgE Cockroach, German <0.10 kU/L; Immunoglobulin E 58 kU/L (<OR=114); M001 IgE Penicillium chrysogen <0.10 kU/L; M002 - IgE Cladosporium herbar <0.10 kU/L; M003 - IgE Aspergillus fumigat <0.10 kU/L; M006 - IgE Alternaria alternat <0.10 kU/L; T001 IgE Maple/Box Elder <0.10 kU/L; T003 IgE Common Silver Birch <0.10 kU/L; T006 - IgE Cedar, Mountain <0.10 kU/L; T007 - IgE Oak, White <0.10 kU/L; T008 IgE Elm, American <0.10 kU/L; T010 - IgE Walnut <0.10 kU/L; T011 - IgE Maple Leaf Sycamore <0.10 kU/L; T014 - IgE Cottonwood <0.10 kU/L; T015 - IgE Ash, White <0.10 kU/L; T070 - IgE White Mulberry <0.10 kU/L; W001 - IgE Ragweed, Short <0.10 kU/L; W006 - IgE Mugwort <0.10 kU/L; W014 IgE Pigweed, Common <0.10 kU/L; W018 IgE Sheep Sorrel <0.10 kU/L
== END 2025-01-04 12:00 | disposition home or self-care (01) ==
LOC: HO.LAB 11:59
PROVIDERS: PCP Internal Medicine; Visit Provider Nurse Practitioner Family
DX: Z91.09 Other allergy status, other than to drugs and biological substances (principal); J40 Bronchitis, not specified as acute or chronic
CPT/HCPCS: 36415; 82785; 86003; 87070; 87205

== ENCOUNTER → 2025-01-18 13:52 | Outpatient (BNV) | payer OTHER, SELFPAY | PROVIDERS: PCP Internal Medicine; Referring Provider Internal Medicine; Visit Provider Internal Medicine Medical Oncology | DX: D75.838 Other thrombocytosis (principal); Z90.81 Acquired absence of spleen | CPT/HCPCS: 99204 ==

== ENCOUNTER 2025-01-21 10:28 | Day surgery (SDC) | payer OTHER, SELFPAY ==
--- NOTE | 2025-01-17 12:06 | HO.ANESPROP2 ---
Documented by User: Jessica Quiros NP 01/17/25 12:08 HPI - Anesthesia Eval Consult details Narrative: 59yo F for Bronchoscopy Fiberoptic PMFSH Active Problems Active Problems: All Active Problems Multiple drug allergies (Acute) History of mycobacterial infection (Acute) Chronic cough (Acute) Environmental allergies (Acute) Elevated platelet count (Acute) Anemia (Acute) Elevated WBCs (Acute) Pneumonia (Acute) SOB (shortness of breath) (Acute) Wheezing (Acute) Hyperlipidemia, unspecified (Acute) Essential hypertension (Acute) Chronic sinusitis (Acute) Acute rhinitis (Acute) Viral syndrome (Acute) Right shoulder pain (Acute) Generalized anxiety disorder (Acute) Acute sinusitis (Acute) Past Medical History Medical History History of mycobacterial infection Elevated platelet count Anemia Elevated WBCs Hyperlipidemia, unspecified Essential hypertension Family History Family History Mother No problems noted. Father No problems noted. Surgical History Surgical History History of bunionectomy History of removal of cyst H/O oral surgery History of colonoscopy (~03/11/15) History of ankle surgery H/O splenectomy Social History Social History Housing: House Are you a primary primary care nurse practitioner to a significant other at home: No Do you presently have visiting nurse or other home services: No Alcohol intake: current Alcohol intake frequency: a few times a month Patient Tobacco Use Status: Former Tobacco user Tobacco use type: Cigarette Cigarettes Per Day: 10 Years Smoked: 20 Smoked in Last 30 Days: No e-Cigarette/Vaping Use: Never Used Second Hand Smoke Exposure: Yes Use of substances other than those prescribed or required for medical reasons: No Have you been hit, kicked, punched, or otherwise hurt by someone within the past year? If so, by whom?: No Are you DNR?: No Advance Directives: No Advance Directives Information Provided: No Advance Directives on File: No Patient : No : No Poor oral hygiene: No service: No Current occupational status: employed Cognitive needs: No Hearing needs: No Vision needs: Yes (Glasses) Meds Allergies Allergy/AdvReac Type Severity Reaction Status Date / Time cephalexin [Cephalexin] Allergy Intermediate HIVES Verified 01/21/25 10:58 ciprofloxacin [From Cipro] Allergy Intermediate HIVES Verified 01/21/25 10:58 nitrofurantoin [Macrodantin] Allergy Intermediate Hives Verified 01/21/25 10:58 penicillin V Allergy Intermediate Hives Verified 01/21/25 10:58 Penicillins Allergy Intermediate HIVES Verified 01/21/25 10:58 Sulfa (Sulfonamide Allergy Intermediate hives Verified 01/21/25 10:58 Antibiotics) sulfamethoxazole Allergy Intermediate HIVES Verified 01/21/25 10:58 [From Bactrim] trimethoprim [From Bactrim] Allergy Intermediate HIVES Verified 01/21/25 10:58 Erythromycin Allergy Intermediate Hives Uncoded 01/21/25 10:58 From MACRODANTIN Allergy Intermediate HIVES/BLIST Uncoded 01/21/25 10:58 ERS keflex Allergy Intermediate blisters/ra Uncoded 01/21/25 10:58 sh macrodantin Allergy Intermediate blisters/ra Uncoded 01/21/25 10:58 sh penicillin Allergy Intermediate blisters/ra Uncoded 01/21/25 10:58 sh sulfa Allergy Intermediate blisters/ra Uncoded 01/21/25 10:58 sh Exam Pertinent Lab Results Pertinent Lab Results: Laboratory Tests 12/13/24 11:22 WBC 21.7 H Hgb 13.4 Hct 40.8 Plt Count 601 H Sodium 134 L Potassium 4.0 Chloride 96 Carbon Dioxide 27 BUN 14 Creatinine 0.66 Hx splenectomy Assessment and Plan Assessment Anesthesia Assessment: Chart Reviewed Documented by User: Darcy De La Paz MD 01/21/25 12:07 [facility] Past Medical History Medical History History of mycobacterial infection Elevated platelet count Anemia Elevated WBCs Hyperlipidemia, unspecified Essential hypertension Family History Family History Mother No problems noted. Father No problems noted. Family history of problems with anesthesia: No Surgical History Surgical History History of bunionectomy History of removal of cyst H/O oral surgery History of colonoscopy (~03/11/15) History of ankle surgery H/O splenectomy History of Problems with Anesthesia: No Social History Social History Housing: House Are you a primary primary care nurse practitioner to a significant other at home: No Do you presently have visiting nurse or other home services: No Alcohol intake: current Alcohol intake frequency: a few times a month Patient Tobacco Use Status: Former Tobacco user Tobacco use type: Cigarette Cigarettes Per Day: 10 Years Smoked: 20 Smoked in Last 30 Days: No e-Cigarette/Vaping Use: Never Used Second Hand Smoke Exposure: Yes Use of substances other than those prescribed or required for medical reasons: No Have you been hit, kicked, punched, or otherwise hurt by someone within the past year? If so, by whom?: No Are you DNR?: No Advance Directives: No Advance Directives Information Provided: No Advance Directives on File: No Patient : No : No Poor oral hygiene: No service: No Current occupational status: employed Cognitive needs: No Hearing needs: No Vision needs: Yes (Glasses) Meds Allergies Allergy/AdvReac Type Severity Reaction Status Date / Time cephalexin [Cephalexin] Allergy Intermediate HIVES Verified 01/21/25 10:58 ciprofloxacin [From Cipro] Allergy Intermediate HIVES Verified 01/21/25 10:58 nitrofurantoin [Macrodantin] Allergy Intermediate Hives Verified 01/21/25 10:58 penicillin V Allergy Intermediate Hives Verified 01/21/25 10:58 Penicillins Allergy Intermediate HIVES Verified 01/21/25 10:58 Sulfa (Sulfonamide Allergy Intermediate hives Verified 01/21/25 10:58 Antibiotics) sulfamethoxazole Allergy Intermediate HIVES Verified 01/21/25 10:58 [From Bactrim] trimethoprim [From Bactrim] Allergy Intermediate HIVES Verified 01/21/25 10:58 Erythromycin Allergy Intermediate Hives Uncoded 01/21/25 10:58 From MACRODANTIN Allergy Intermediate HIVES/BLIST Uncoded 01/21/25 10:58 ERS keflex Allergy Intermediate blisters/ra Uncoded 01/21/25 10:58 sh macrodantin Allergy Intermediate blisters/ra Uncoded 01/21/25 10:58 sh penicillin Allergy Intermediate blisters/ra Uncoded 01/21/25 10:58 sh sulfa Allergy Intermediate blisters/ra Uncoded 01/21/25 10:58 sh Exam Airway Mallampati Class: II TM Dist: >3cm Neck ROM: Full Heart: rrr Lungs: cta Assessment and Plan Assessment Anesthesia Assessment: Anesthesia Plan Discussed Final Anesthetic Review Family History of Problems with Anesthesia: No History of Problems with Anesthesia: No NPO: Yes ASA Class: III Final Preanesthetic Review: No Changes in Pt Med Stat, Meds/Allgs Chart Reviewed, Consent Obtained/Reviewed and Anes Risks/Benef Reviewed Patient Risk: Intermediate Procedure Risk: Low Anesthetic Plan Anesthetic Plan: GA Disposition: Standard PACU
[2025-01-17 12:57] VITALS: BMI 25.3
[2025-01-21] VITALS (8 sets, daily range): BP systolic 75–138; BP diastolic 35–85; PULSE 82–94; RESP 16; TEMP 36.4–36.8; O2SAT 95–97; BMI 24.9
--- NOTE | 2025-01-21 10:50 | PC.NURSE ---
Patient in preop. States she ate a cough drop this morning at 0945, lemon flavored. Dr. De La Paz made aware. No new orders at this time, may proceed as scheduled.
[2025-01-21] MEDS: Lactated Ringers 1,000 ML 100 ML IVCONT (11:20)
--- NOTE | 2025-01-21 11:29 | MHC.SHP ---
Pre-Procedural Eval Section A - 24 Hr Update-Section A only Date of Service: 01/21/25 The patient is an INPATIENT: No Changes since office visit: Yes Patient answered all questions; No Cold of Flu in the past 2 weeks, No New Medical Problems and No Changes in Medication The patient has been examined within 24 hours of the surgical procedure. The History & Physical has been completed within 30 days and I have reviewed it.: No Section B - Complete if H&P > 30 days Chief Complaint: Pulmonary mycobacterial infection Details of Present Illness: Chronic cough with unrevealing conventional cultures, planned for fiberoptic bronchoscopy with lavage Relevant Family History (Specify if Yes): No Relevant Social History: None Present Medications: see Short Stay Collaborative assessment Medical History: Significant History (Prior history of MAC) Allergies: Allergies Allergy/AdvReac Type Severity Reaction Status Date / Time cephalexin [Cephalexin] Allergy Intermediate HIVES Verified 01/21/25 10:58 ciprofloxacin [From Cipro] Allergy Intermediate HIVES Verified 01/21/25 10:58 nitrofurantoin [Macrodantin] Allergy Intermediate Hives Verified 01/21/25 10:58 penicillin V Allergy Intermediate Hives Verified 01/21/25 10:58 Penicillins Allergy Intermediate HIVES Verified 01/21/25 10:58 Sulfa (Sulfonamide Allergy Intermediate hives Verified 01/21/25 10:58 Antibiotics) sulfamethoxazole Allergy Intermediate HIVES Verified 01/21/25 10:58 [From Bactrim] trimethoprim [From Bactrim] Allergy Intermediate HIVES Verified 01/21/25 10:58 Erythromycin Allergy Intermediate Hives Uncoded 01/21/25 10:58 From MACRODANTIN Allergy Intermediate HIVES/BLIST Uncoded 01/21/25 10:58 ERS keflex Allergy Intermediate blisters/ra Uncoded 01/21/25 10:58 sh macrodantin Allergy Intermediate blisters/ra Uncoded 01/21/25 10:58 sh penicillin Allergy Intermediate blisters/ra Uncoded 01/21/25 10:58 sh sulfa Allergy Intermediate blisters/ra Uncoded 01/21/25 10:58 sh Review of Systems Sugical H&P ROS: Negative: Constitution, Cardiovascular, Neurological, Psychiatric, Hem-Onc, Allergic/Immunologic, Gastrointestinal, Genitourinary, Musculoskeletal, Integumentary, Endocrine and Eyes/Ears/Nose/Throat and Yes, Specify: Respiratory (Chronic cough) Exam Surgical H&P Exam: Normal: HEENT, Normal: Heart, Normal: Lungs, Normal: Extremities, Normal: Abdomen, Normal: Skin and Normal: Neurological Plan Diagnosis/Plan: Unchanged I have reviewed the history and physical and performed a pertinent physical examination on my patient. No changes have occurred unless specified. Time Spent With Patient Time: Total time managing care of this patient today ____ minutes.
--- NOTE | 2025-01-21 13:19 | PM.OP ---
Brief Operative Note Date of Service: 01/21/25 Pre-op diagnosis: Chronic cough Post-op diagnosis: same Procedure: Flexible bronchoscope advanced through the LMA, vocal cords anesthetized with 2 cc of lidocaine, thereafter flexible bronchoscope advanced through the vocal cords and through the tracheobronchial tree. Chronically inflamed mucosa with whitish/grayish plaques noted throughout the airway with friability. Small amount of thick secretions noted and cleared. Thereafter combined right middle lobe and lingular bronchoalveolar lavage performed with the paroxysmally 25 cc of lavage fluid suctioned back and sent for further microbiologic testing. Patient tolerated procedure well and was returned to PACU in stable condition. Surgeon: Gadiel Barcenas MD Anesthesia: GLMA Was an Summer Analyst used for this Procedure?: No Estimated blood loss (mL): 0 Disposition: PACU
== END 2025-01-21 15:25 | disposition home or self-care (01) ==
PROVIDERS: PCP Internal Medicine; Visit Provider Internal Medicine Pulmonary Disease
PROC: 0BJ08ZZ Inspection of Tracheobronchial Tree, Via Natural or Artificial Opening Endoscopic (ICD-10-PCS; CPT 31622; principal; 2025-01-21 12:30)
DX: R05.3 Chronic cough (principal); J06.9 Acute upper respiratory infection, unspecified; J40 Bronchitis, not specified as acute or chronic; B95.61 Methicillin susceptible Staphylococcus aureus infection as the cause of diseases classified elsewhere; R09.3 Abnormal sputum; Z86.19 Personal history of other infectious and parasitic diseases; R06.09 Other forms of dyspnea; I77.82 Antineutrophilic cytoplasmic antibody [ANCA] vasculitis; D75.839 Thrombocytosis, unspecified; D72.829 Elevated white blood cell count, unspecified; I10 Essential (primary) hypertension; D64.9 Anemia, unspecified; E78.5 Hyperlipidemia, unspecified; Z90.81 Acquired absence of spleen; Z79.51 Long term (current) use of inhaled steroids; Z79.899 Other long term (current) drug therapy; Z88.0 Allergy status to penicillin; Z88.1 Allergy status to other antibiotic agents; Z88.2 Allergy status to sulfonamides; Z87.891 Personal history of nicotine dependence
CPT/HCPCS: 31624; 87070; 87077; 87102; 87116; 87147; 87186; 87205; 87206; 88112; 88305; J0171; J1100; J2003; J2371; J2405; J2704; J3010

== ENCOUNTER → 2025-01-21 10:28 | Outpatient (BNV) | payer OTHER, SELFPAY | PROVIDERS: PCP Internal Medicine; Visit Provider Internal Medicine Pulmonary Disease | DX: R05.3 Chronic cough (principal) | CPT/HCPCS: 31624 ==

== ENCOUNTER 2025-07-17 15:31 | Outpatient (AMB) | payer OTHER, SELFPAY ==
--- NOTE | 2025-07-17 15:36 | A.OFFPC_ITS ---
Vital Signs 07/17/25 15:38 Height 5 ft 6 in Weight 150 lb 4 oz BMI 24.2 BP 122/80 Blood Pressure Location Lt brachial Position Sitting Pulse 84 Pulse Source Pulse Oximeter Temp 97.5 F Temp Source Temporal Artery Scan Pulse Oximetry (%) 96 Oxygen Delivery Method Room Air Intake Visit Reasons: follow up - see comments Intake Note: Patient is here to follow up on HTN, HLD, Anemia. Expediter Required: No Senior Safety Management Consultant: Not Required per policy Accompanied by: Self / Same As Patient Allergies cephalexin (Cephalexin) Allergy (Intermediate, Verified 07/17/25 15:38) HIVES ciprofloxacin (From Cipro) Allergy (Intermediate, Verified 07/17/25 15:38) HIVES nitrofurantoin (Macrodantin) Allergy (Intermediate, Verified 07/17/25 15:38) Hives penicillin V Allergy (Intermediate, Verified 07/17/25 15:38) Hives Penicillins Allergy (Intermediate, Verified 07/17/25 15:38) HIVES Sulfa (Sulfonamide Antibiotics) Allergy (Intermediate, Verified 07/17/25 15:38) hives sulfamethoxazole (From Bactrim) Allergy (Intermediate, Verified 07/17/25 15:38) HIVES trimethoprim (From Bactrim) Allergy (Intermediate, Verified 07/17/25 15:38) HIVES Erythromycin Allergy (Intermediate, Uncoded 03/06/25 11:30) Hives From MACRODANTIN Allergy (Intermediate, Uncoded 03/06/25 11:30) HIVES/BLISTERS keflex Allergy (Intermediate, Uncoded 03/06/25 11:30) blisters/rash macrodantin Allergy (Intermediate, Uncoded 03/06/25 11:30) blisters/rash penicillin Allergy (Intermediate, Uncoded 03/06/25 11:30) blisters/rash sulfa Allergy (Intermediate, Uncoded 03/06/25 11:30) blisters/rash Tobacco use date assessed: 07/17/25 Dental Screening Dental Screen Date: 10/23/24 [facility] Medical History History of mycobacterial infection Elevated platelet count Anemia Elevated WBCs Hyperlipidemia, unspecified Essential hypertension Surgical History History of bunionectomy History of removal of cyst H/O oral surgery History of colonoscopy (~03/11/15) History of ankle surgery H/O splenectomy Family History Mother No problems noted. Father No problems noted. Social History Housing: House Are you a primary healthcare administrative assistant to a significant other at home: No Do you presently have visiting nurse or other home services: No Alcohol intake: current Alcohol intake frequency: a few times a month Patient Tobacco Use Status: Former Tobacco user Tobacco use type: Cigarette Cigarettes Per Day: 10 Years Smoked: 20 e-Cigarette/Vaping Use: Never Used Second Hand Smoke Exposure: Yes service: No Current occupational status: employed Cognitive needs: No Hearing needs: No Vision needs: Yes (Glasses) Questionnaire PHQ-9 Over the last 2 weeks, how often have you been bothered by any of the following problems? 1. Little interest or pleasure in doing things: not at all 2. Feeling down, depressed, or hopeless: not at all 3. Trouble falling or staying asleep, or sleeping too much: not at all 4. Feeling tired or having little energy: not at all 5. Poor appetite or overeating: not at all 6. Feeling bad about yourself - or that you are a failure or have let yourself or your family down: not at all 7. Trouble concentrating on things, such as reading the newspaper or watching television: not at all 8. Moving or speaking so slowly that other people could have noticed. Or the opposite - being so fidgety or restless that you have been moving around a lot more than usual: not at all 9. Thoughts that you would be better off or of hurting yourself in some way: not at all Total score: 0 Depression Screening Interpretation: Negative Depression Screening Done: Yes Source: Developed by Drs. Jose Pedersen, Jeanette Farmer, Chuck Adams and colleagues, with an educational emery from [employer]. Thrive Questionnaire Date Thrive assessed: 10/23/24 SARAHY-7 AMB Questionnaire SARAHY-7 Date SARAHY - 7 assessed: 10/23/24 Source: Developed by Drs. Jose Pedersen, Jeanette Farmer, Chuck Adams and colleagues, with an educational emery from [employer]. Physical exam (Primary Care) Vital Signs: Last Vital Signs Temp 97.5 F 07/17/25 15:38 Pulse 84 07/17/25 15:38 BP 122/80 07/17/25 15:38 Pulse Ox 96 07/17/25 15:38 Oxygen Delivery Method Room Air 07/17/25 15:38 BMI result Body Mass Index 24.2 Tobacco/Smoking Status: Tobacco use Status Tobacco use date assessed 07/17/25 07/17/25 15:43 Patient Tobacco Use Status Former Tobacco user 07/17/25 15:43 Tobacco use type Cigarette 07/17/25 15:43 e-Cigarette/Vaping Use Never Used 07/17/25 15:43 PHQ-9: PHQ-9 Score PHQ-9: Total score 0 07/17/25 15:43 Depression Screening Interpretation: Negative Thrive Assessment: Date of Thrive Assessment Date Thrive assessed 10/23/24 07/17/25 15:43 Coding Level of Care Code Est Pt Level 4 (18689) Complex EM visit Add On G2211 Diagnoses Essential hypertension I10 Assessment & Plan Assessment & Plan (1) Essential hypertension: Code(s): I10 - Essential (primary) hypertension Category: Medical Plan: History of Present Illness - The patient is a 60-year-old female presenting for a follow-up and health maintenance visit. - She was last seen in November for a cough, which was worse at night and associated with sleep disruption and body aches. - At that time, she was treated with antibiotics, two courses of prednisone, and had a chest x-ray. - Following the visit, she saw a career law clerk and had a chest CT scan in December. - The cough has now resolved, and she reports she has not needed her albuterol and budesonide inhalers. - Her medical history is significant for hypertension, for which she takes lisinopril and hydrochlorothiazide daily. - She also has hyperlipidemia but reports frequently forgetting to take her atorvastatin. - She has lorazepam for anxiety but has not needed it recently. - Regarding health maintenance, she is due for a mammogram, which she had to reschedule, and a colonoscopy. - She has a family history of colon cancer in her father. - Her flu shot is up to date, received at a prior visit. Social History - Alcohol: Reports social use only. - Exercise: Reports being active with work, walking her dogs, and mowing a large lawn. - She does not go to a gym but has exercises she can do at home and is considering chair yoga. Review of Systems - Constitutional: Reports feeling fine. - Denies body aches. - Eyes: Reports her vision is not as good and believes her glasses are no longer strong enough. - Denies halos. - Respiratory: Denies cough. - Gastrointestinal: Denies abdominal pain. - Allergic/Immunologic: Patient has an upcoming appointment with an [employer] operations specialist. Physical Exam General: Cooperative and healthy appearing Nutritional Appearance: Well nourished Orientation/consciousness: Patient oriented x3 Limitations: No limitations Head: Normal to inspection General: Appearance normal, both eyes and all related structures Neck: Normal visual inspection Chest: Normal palpation of entire chest wall Respiratory: Cough is gone, occasional cough noted. ormal respiratory effort Neurology: Patient oriented x3 Results - Imaging: A chest CT was performed in December; results were not discussed but the patient's related symptoms have resolved. - Imaging: A chest x-ray was performed subsequent to the November visit. Plan - Hypertension: Continue lisinopril and hydrochlorothiazide. - A refill will be sent to [facility]. - Hyperlipidemia: Advised to take atorvastatin consistently. - A refill will be sent to [facility]. - Health Maintenance: Orders placed for fasting blood work. - Health Maintenance: A referral will be made for a colonoscopy due to family history of colon cancer; the facility will call the patient to schedule. - Health Maintenance: Patient advised to schedule her due mammogram. - Lifestyle: Advised to incorporate scheduled daily exercise, including cardiovascular activities, weight training, and chair yoga. - Vision: Advised to schedule an eye exam. - Follow-up: Return to the clinic in 6 months. Discussion Notes I reviewed the patient's recent history, noting that her cough, for which she was seen in November and subsequently saw a career law clerk, has resolved. We discussed her medications, and I emphasized the importance of taking her atorvastatin for hyperlipidemia. I sent refills for her lisinopril, hydrochlorothiazide, and atorvastatin to [facility] as requested to ensure insurance coverage. We discussed preventative screenings, and I explained that due to her father's history of colon cancer, a colonoscopy is the gold standard and is strongly recommended over Cologuard to allow for the removal of any potential polyps. The patient agreed, and I will place a referral for the procedure. I also reminded her to schedule her due mammogram. I advised her to make a plan to incorporate scheduled daily exercise, including cardiovascular activity, weights, and chair yoga. I placed orders for fasting labs and recommended she schedule an eye exam. The plan is to follow up in six months. Patient Instructions - Please continue to take your blood pressure medications (lisinopril and hydrochlorothiazide) every day. - It is important to take your cholesterol medication (atorvastatin) as prescribed. - I have sent refills for these three medications to your mail-order pharmacy, [facility]. - Please get the fasting blood work done that we ordered. - We have sent a referral for a colonoscopy because your father had colon cancer. - The specialist's office will call you to schedule this important screening. - Please call to schedule your mammogram, as you are due for this screening. - Try to make time for exercise every day, such as walking, using light weights, or doing chair yoga. - Please schedule an eye exam, as it seems your vision has changed. - Please make a follow-up appointment to be seen here in six months. Orders: Orders Lipid Panel 07/17/25 I10 - Essential (primary) hypertension Liver Panel 07/17/25 I10 - Essential (primary) hypertension UA and rflx microscopic 07/17/25 I10 - Essential (primary) hypertension Basic Metabolic Panel 07/17/25 I10 - Essential (primary) hypertension Complete Blood Count no Diff 07/17/25 I10 - Essential (primary) hypertension Thyroid Stimulating Hormone 07/17/25 I10 - Essential (primary) hypertension Referrals Gastroenterology Referral Z12.11 - Encounter for screening for malignant neoplasm of colon Medications: Refilled hydrochlorothiazide 25 mg PO DAILY 90 tabs 1RF atorvastatin 10 mg PO BEDTIME 90 tabs 1RF lisinopril 10 mg PO DAILY 90 tabs 1RF
[2025-07-17 15:38] VITALS: BP 122/80; PULSE 84; TEMP 36.4; O2SAT 96; BMI 24.2
== END 2025-07-17 16:02 | disposition home or self-care (01) ==
LOC: HO.HMCH 15:32
PROVIDERS: Visit Provider Internal Medicine
DX: I10 Essential (primary) hypertension (principal)